=== PATIENT | female | born 1980 | race Caucasian/White ===

== ENCOUNTER 2017-07-16 03:23 | Emergency (ER) | payer OTHER, SELFPAY ==
--- NOTE | 2017-07-16 08:59 | RAD ---
AP VIEW OF CHEST: Date: 07/16/17 HISTORY: Cough. FINDINGS: Comparison made to previous exam from 03/29/10. AP view of chest demonstrates the lungs to be well aerated. No evidence of active intrathoracic disea se seen. No evidence of effusions, pneumonia, or pneumothorax seen. IMPRESSION: Unremarkable AP view of chest. POS: [id number]
== END 2017-07-16 05:47 | disposition home or self-care (01) ==
LOC: ERS 03:23
DX: J20.9 Acute bronchitis, unspecified (principal); F17.210 Nicotine dependence, cigarettes, uncomplicated
CPT/HCPCS: 71010; 99406